=== PATIENT | female | born 1930 | race Caucasian/White ===

== ENCOUNTER 2018-07-04 11:41 | Emergency (ER) | payer MEDICARE, MEDICAID ==
[2018-07-04 11:59] VITALS: BP 110/52
--- NOTE | 2018-07-04 12:00 | ER Document Report ---
ED General - General Chief Complaint: Weakness Stated Complaint: GENERAL WEAKNESS Time Seen by Provider: 07/04/18 11:54 Notes: 87-year-old female brought to the emergency department from [facility] to have a peripheral IV placed. Patient was sent from [facility] to have an IV placed because they already tried to place an IV multiple times and were unable to. With in order to have an IV placed, this order was written by Dr. Campuzano however Dr. Campuzano does not have privileges at [facility] so I had to see this patient to order the IV placed. The patient is apparently supposed to receive IV fluids when she returns to [facility] with IV access as they found her to have some hyponatremia. No further report was given. Patient gives me no history. No records were sent with the patient aside from the order for IV placement. The transport crew did see orders for IV fluids already written at the [facility]. Past Medical History - General Information source: Emergency Med Personnel Cannot obtain history due to: Dementia - Social History Smoking Status: Unknown if Ever Smoked Lives with: [facility] Family History: Hypertension Review of Systems - Review of Systems Cardiovascular: Other - Poor vascular access Hematologic/Lymphatic: Other - Hyponatremia Physical Exam - Notes Notes: General patient is lying in bed, opens her eyes to verbal command, does not answer questions. HEENT-no facial droop, opens her eyes without difficulty, dry mucous membranes Skin-warm and dry. Multiple bandages noted consistent with multiple attempts to start IVs. After being seen by nursing there is an IV in the right AC that flushes well. Course - Re-evaluation Re-evalutation: 07/04/18 12:00 IV was placed by nursing, no workup was performed. Discharge - Discharge Clinical Impression: Encounter for intravenous line placement Condition: Stable Disposition: SNF-Other Additional Instructions: Today you were sent to the emergency department from [place] to have an IV placed. Currently you already have orders from your doctor to have other treatment given at the [facility] for your abnormal labs. They did not send any abnormal labs with you and did not want us to do any further workup. I did not draw any blood work at this time. If the nurses or physicians at [facility] become concerned at any time and would like you to return to the emergency department to have any sort of workup done you are always welcome to return at any time. You actually had an order written for the IV to be placed however since that physician does not have order writing privileges at [facility] we had to have 1 of our emergency physician see you and order IV placement. Referrals: JOAQUINA CAMPUZANO, DO [Primary Care Provider] - Follow up as needed
== END 2018-07-04 12:02 ==
LOC: ER 11:41
DX: Z45.2 Encounter for adjustment and management of vascular access device (principal); R53.1 Weakness
CPT/HCPCS: 99284